=== PATIENT | male | born 1940 | race Caucasian/White ===

== ENCOUNTER 2019-03-11 11:53 | Day surgery (SDC) | payer MEDICARE ==
[~2019-03-11] VITALS: Ht 188 cm; Wt 78.0 kg
[2019-03-11] VITALS (8 sets, daily range): BP systolic 135–187; BP diastolic 54–90
[2019-03-11] MEDS ORDERED: diphenhydrAMINE 25mg capsule PO PRN (12:25)
[2019-03-11] MEDS ORDERED: normal saline 1,000 ML IV SCH (12:25)
[2019-03-11] MEDS ORDERED: ASPI81TA52 PO (12:28)
[2019-03-11] MEDS ORDERED: METF500T PO (12:28)
[2019-03-11] MEDS ORDERED: SIMV20TA5 PO (12:28)
[2019-03-11 13:35] LABS: BASOPHILS % (AUTO) 0.6 % (0-1); EOSINOPHILS # (AUTO) 0.2 X10'3 (0-0.9); EOSINOPHILS % (AUTO) 2.9 % (0-6); HEMATOCRIT 44.5 % (42.0-52.0); HEMOGLOBIN 15.1 g/dl (14.0-17.9); LYMPHOCYTES # (AUTO) 1.6 X10'3 (1.1-4.8); LYMPHOCYTES % (AUTO) 24.5 % (21-51); MEAN CORPUSCULAR HEMOGLOBIN 32.6 PG (27.0-31.0); MEAN CORPUSCULAR HGB CONC 34.1 g/dL (33.0-36.5); MEAN CORPUSCULAR VOLUME 95.8 FL (78-98); MEAN PLATELET VOLUME 7.4 FL (7.4-10.4); MONOCYTES # (AUTO) 0.8 X10'3 (0-0.9); MONOCYTES % (AUTO) 11.6 % (2-12); NEUTROPHILS % (AUTO) 60.4 % (42-75); PLATELET COUNT 274 X10'3 (140-440); RED BLOOD COUNT 4.64 X10'6 (4.70-6.10); RED CELL DISTRIBUTION WIDTH 12.1 % (11.5-14.5); WHITE BLOOD COUNT 6.6 X10'3 (4.5-11.0)
[2019-03-11] MEDS ORDERED: fentaNYL/PF 50MCG/1 ML 2ML syringe ONE ×2 (13:44→14:54)
[2019-03-11] MEDS ORDERED: midazolam 2 mg/2 ml injection ONE ×2 (13:44→14:37)
[2019-03-11] MEDS ORDERED: iohexol 350 MG/1 ML 200ml bottle ONE (13:45)
[2019-03-11] MEDS ORDERED: heparin 1,000unit/ml 10ml vial 10 ML ONE ×2 (13:45→14:37)
[2019-03-11] MEDS ORDERED: LIDOcaine 1% (10mg/ml)w/preservative injection 20ml MDV ONE (13:50)
[2019-03-11 13:57] LABS: ANION GAP 8 (8-16); BLOOD UREA NITROGEN 20 MG/DL (7-18); BUN/CREATININE RATIO 30.3 (5.4-32.0); CALCIUM 9.1 MG/DL (8.5-10.1); CHLORIDE 104 MMOL/L (99-107); CREATININE 0.66 MG/DL (0.60-1.10); GLUCOSE 110 MG/DL (70-104); MAGNESIUM 1.9 MG/DL (1.5-2.4); POTASSIUM 3.9 MMOL/L (3.5-5.1); SODIUM 141 MMOL/L (135-145); TOTAL CARBON DIOXIDE 28.7 MMOL/L (24-32); eGFR > 90 ML/MIN
[2019-03-11] MEDS ORDERED: proCHLORperazine 10 MG/2 ml inj ONE (14:23)
[2019-03-11] MEDS ORDERED: nitroGLYCERIN-Tridil 50MG/D5W 250 ML IV ONE (14:52)
[2019-03-11] MEDS ORDERED: clopidogrel 300mg tablet ONE (15:04)
[2019-03-11] MEDS ORDERED: cloNIDine 0.1 mg tablet PO SCH (15:35)
[2019-03-11] MEDS ORDERED: ketorolac tromethamine 15mg/ml inj. IM ONE (15:35)
[2019-03-11] MEDS ORDERED: HYDROcodone/acetaminophen 5mg/325mg tablet PO PRN (15:40)
[2019-03-11] MEDS ORDERED: HYDROcodone/acetaminophen 10/325mg tab PO PRN (15:40)
--- NOTE | 2019-03-11 15:45 | NUR ---
REPORTED BP TO MD, WELL REPORT OF CP. NEW ORDERS GIVEN, MEDICATION BEING ADMINISTERED ORDERED.
[2019-03-11] MEDS ORDERED: mag hydrox/Alum hydrox/simeth 30ml oral suspension PO ONE (15:55)
--- NOTE | 2019-03-11 16:12 | NUR ---
PT EATING SANDWICH, 500ML FLUID HAS BEEN TAKEN. WILL CONTINUE TO MONITOR.
== END 2019-03-11 18:39 | disposition home or self-care (01) ==
LOC: SSTAY O 11:53
PROVIDERS: ATTEND Internal Medicine Cardiovascular Disease
DX: I25.110 Atherosclerotic heart disease of native coronary artery with unstable angina pectoris (principal); E11.9 Type 2 diabetes mellitus without complications; E78.00 Pure hypercholesterolemia, unspecified; E78.5 Hyperlipidemia, unspecified; Z98.890 Other specified postprocedural states; Z72.89 Other problems related to lifestyle; Z87.891 Personal history of nicotine dependence; I35.0 Nonrheumatic aortic (valve) stenosis
CPT/HCPCS: 36415; 80048; 82948; 83735; 85025; 85610; 93005; 93458; 99152; 99153; A6257; C1874; C1887; C9600; J0780; J1644; J2001; J2250; J3010; J7030; Q0163; Q9967; A4620; C1725; C1760; C1769; C1894; J3490

== ENCOUNTER 2024-02-19 07:17 | Day surgery (SDC) | payer MEDICARE ==
[2024-02-19] VITALS (9 sets, daily range): BP systolic 115–148; BP diastolic 53–79; PULSE 53–66; RESP 11–16; TEMP 97.6; O2SAT 95–98
[~2024-02-19] VITALS: Ht 188 cm; Wt 86.5 kg
[~2024-02-19 07:17] MED LIST: ASPI81TA52 PO; METF500T PO; SIMV-42 PO
[2024-02-19] MEDS ORDERED: FLO0.4C (07:51)
[2024-02-19] MEDS ORDERED: PIOG30TA71 PO (07:51)
[2024-02-19] MEDS ORDERED: METO-395 PO (07:51)
[2024-02-19] MEDS ORDERED: METF-1203 PO (07:51)
[2024-02-19] MEDS ORDERED: ROSU40TA22 PO (07:51)
[2024-02-19 08:16] LABS: BASOPHILS % (AUTO) 0.9 % (0-1); EOSINOPHILS # (AUTO) 0.2 X10'3 (0-0.9); EOSINOPHILS % (AUTO) 4.8 % (0-6); HEMATOCRIT 39.7 % (42.0-52.0); HEMOGLOBIN 13.5 g/dl (14.0-17.9); LYMPHOCYTES # (AUTO) 1.3 X10'3 (1.1-4.8); MEAN CORPUSCULAR HEMOGLOBIN 33.7 PG (27.0-31.0); MEAN CORPUSCULAR VOLUME 99.4 FL (78-98); MEAN PLATELET VOLUME 7.6 FL (7.4-10.4); MONOCYTES # (AUTO) 0.4 X10'3 (0-0.9); NEUTROPHILS # (AUTO) 2.4 X10'3 (1.8-7.7); NEUTROPHILS % (AUTO) 54.3 % (42-75); PLATELET COUNT 175 X10'3 (140-440); RED BLOOD COUNT 3.99 X10'6 (4.70-6.10); RED CELL DISTRIBUTION WIDTH 12.7 % (11.5-14.5); WHITE BLOOD COUNT 4.4 X10'3 (4.5-11.0)
[2024-02-19 08:23] LABS: ALBUMIN 3.3 G/DL (3.4-5.0); ANION GAP 6 (8-16); BLOOD UREA NITROGEN 13 MG/DL (7-18); BUN/CREATININE RATIO 17.6 (10.0-20.0); CALCIUM 8.3 MG/DL (8.5-10.1); CHLORIDE 103 MMOL/L (99-107); CREATININE 0.74 MG/DL (0.60-1.10); GLUCOSE 143 MG/DL (70-104); MAGNESIUM 1.8 MG/DL (1.5-2.4); POTASSIUM 4.1 MMOL/L (3.5-5.1); SODIUM 138 MMOL/L (135-145); TOTAL CARBON DIOXIDE 29.2 MMOL/L (24-32); eCRCL 89 ML/MIN; eGFR > 90 ML/MIN
[2024-02-19 08:24] LABS: PROTHROMBIN TIME 10.5 SECONDS (9.0-12.0)
[2024-02-19] MEDS: sodium bicarbonate 1meq/ml syr 150 ML in dextrose 5%-water 1,000 ML IV SCH (08:40)
[2024-02-19] MEDS: diphenhydrAMINE 25mg capsule PO PRN (08:42)
[2024-02-19] MEDS: normal saline 1,000 ML IV SCH (08:45)
[2024-02-19] MEDS ORDERED: midazolam 1 mg/ML 2ml injection ONE (10:34)
[2024-02-19] MEDS ORDERED: heparin 1,000unit/ml 10ml vial 10 ML ONE (10:34)
[2024-02-19] MEDS ORDERED: fentaNYL/PF 50MCG/1 ML 2ML syringe ONE (10:34)
[2024-02-19] MEDS ORDERED: verapamil 2.5 mg/ml inj IV ONE (10:34)
[2024-02-19] MEDS ORDERED: iohexol 350 MG/ML 50ML vial IV ONE (10:35)
[2024-02-19] MEDS ORDERED: LIDOcaine 1% (10mg/ml) 2ml vial ONE (10:35)
[2024-02-19] MEDS ORDERED: iohexol 350MG/ML 100ml bottle IV ONE (10:35)
[2024-02-19] MEDS ORDERED: LIDOcaine 1% 30ml preserv. free vial ONE (10:35)
[2024-02-19] MEDS ORDERED: nitroGLYCERIN 500mcg/5mL D5W 5 ML IV ONE (10:38)
[2024-02-19] MEDS ORDERED: ondansetron/PF 4mg/2ml inj IV PRN (12:35)
[2024-02-19] MEDS ORDERED: HYDROcodone/acetaminophen 5mg/325mg tablet PO PRN (12:35)
[2024-02-19] MEDS ORDERED: HYDROcodone/acetaminophen 10/325mg tab PO PRN (12:35)
[2024-02-19] MEDS ORDERED: proCHLORperazine 10 MG/2 ml inj IV PRN (12:35)
== END 2024-02-19 15:35 | disposition home or self-care (01) ==
LOC: SSTAY O 07:17
PROVIDERS: ATTEND Internal Medicine Cardiovascular Disease
DX: I25.118 Atherosclerotic heart disease of native coronary artery with other forms of angina pectoris (principal); E11.319 Type 2 diabetes mellitus with unspecified diabetic retinopathy without macular edema; E78.5 Hyperlipidemia, unspecified; Z87.891 Personal history of nicotine dependence; Z79.82 Long term (current) use of aspirin; Z79.84 Long term (current) use of oral hypoglycemic drugs; Z79.899 Other long term (current) drug therapy; Z95.5 Presence of coronary angioplasty implant and graft; Z96.652 Presence of left artificial knee joint; Z98.890 Other specified postprocedural states
CPT/HCPCS: 36415; 80048; 82948; 83735; 85025; 85610; 93005; 93458; 93571; 99152; 99153; J1644; J2250; J3010; J3490; J7030; J7070; Q0163; Q9967; 93572; A6258; A6402; C1751; C1769; C1894